=== PATIENT | female | born 1940 | race Caucasian/White ===

== ENCOUNTER 2018-07-10 10:49 | Emergency (ER) | payer MEDICARE, SELFPAY ==
[2018-07-10 10:59] VITALS: BP 142/81; PULSE 101; RESP 15; TEMP 36.9; O2SAT 95; BMI 30.8
--- NOTE | 2018-07-10 12:22 | ED.FEMALEGU ---
HPI - Female Genitourinary <JERRY Lawson - Last Filed: 07/10/18 22:31> General Chief complaint: Urogenital-Female Stated complaint: UTI for months, really painful Time Seen by Provider: 07/10/18 12:22 Source: patient Mode of arrival: ambulatory Limitations: no limitations History of Present Illness HPI Narrative: 69-year-old female with history of having back pain and a urinary tract infection over the past several weeks is here for continued symptoms with pain into the suprapubic region that radiates to the back that has worsened over the past several days. she states she has a history of having kidney stones and urinary tract infections. She has been seen by Urology and also Nephrology for the symptoms over the past few weeks. She was in the emergency room for this approximately 2-[address] that was negative. She was treated for urinary tract infection. She reports she still having symptoms that have worsened. She states she has had chills. No known fever. MD Complaint: UTI Related Data Home Medications Medication Instructions Recorded Confirmed memantine 10 mg PO BID 07/10/18 07/10/18 paroxetine HCl 30 mg PO DAILY 07/10/18 07/10/18 propranolol 60 mg PO DAILY 07/10/18 07/10/18 Previous Rx's Medication Instructions Recorded omeprazole 40 mg PO QAM 14 Days #0 cap 03/24/16 hydrocodone-acetaminophen [Wellington] 1 tab PO Q6H PRN #10 tab 07/10/18 sulfamethoxazole-trimethoprim 1 tab PO BID #14 tab 07/10/18 [Bactrim DS] tamsulosin [Flomax] 0.4 mg PO DAILY #14 cap 07/10/18 Allergies Allergy/AdvReac Type Severity Reaction Status Date / Time ibuprofen [From MOTRIN] Allergy Intermediate HIVES Verified 07/10/18 10:59 Penicillins [PENICILLINS] Allergy Intermediate HIVES Verified 07/10/18 10:59 Review of Systems <JERRY Lawson - Last Filed: 07/10/18 22:31> Constitutional Denies chills, Denies fever(s), Denies lethargy and Denies weakness Eyes Denies change in vision, Denies eye discharge, Denies irritation and Denies loss of vision ENT Ears, Nose, Mouth, and Throat: Denies change in voice, Denies neck pain and Denies sore throat Cardiovascular Denies chest pain, Denies irregular heart rhythm, Denies lightheadedness, Denies palpitations, Denies dyspnea, Denies dyspnea on exertion and Denies orthopnea Respiratory Denies cough, Denies dyspnea, Denies dyspnea on exertion and Denies wheezing Gastrointestinal Gastrointestinal: Denies abdominal pain, Denies change in bowel habits, Denies diarrhea, Denies nausea and Denies vomiting Genitourinary Denies hematuria, Reports dysuria, Reports flank pain, Denies urinary incontinence and Denies urinary urgency Musculoskeletal Denies neck pain Neurologic Denies confusion, Denies loss of vision and Denies weakness Psychiatric Denies anxiety, Denies confusion, Denies depression, Denies homicidal ideation and Denies suicidal ideation Endocrine Denies palpitations Allergic/Immunologic Denies wheezing Exam <JERRY Lawson - Last Filed: 07/10/18 22:31> Initial Vital Signs Initial Vital Signs: Vital Signs Temperature 98.4 F 07/10/18 10:59 Pulse Rate 101 H 07/10/18 10:59 Respiratory Rate 15 07/10/18 10:59 Blood Pressure 142/81 H 07/10/18 10:59 Pulse Oximetry 95 07/10/18 10:59 Const General: cooperative and well developed Nutritional Appearance: well nourished Orientation: alert, awake, oriented x3 and not confused HENKS Mouth: oral mucosae normal and moist mucous membranes Eyes Conjunctivae: conjunctivae normal Sclera: sclerae normal Pupils: PERRL EOM: EOM intact bilaterally Chest Chest: normal inspection of the chest Resp Effort & Inspection: normal respiratory effort, able to speak in complete sentences, no respiratory distress and no use of accessory muscles Auscultation: clear to auscultation bilaterally, no rales, no rhonchi and no wheezes Cardio Rate: regular rate Rhythm: regular rhythm Heart Sounds: no click, no gallops, no murmurs and no rubs Pulses: normal peripheral pulses GI Other: Tenderness over suprapubic area General: No CVA tenderness Neuro General: alert, oriented x3, gait normal and no focal motor deficits Speech: speech normal <Alin Chaudhry DO - Last Filed: 07/11/18 06:12> Initial Vital Signs Initial Vital Signs: Vital Signs Temperature 98.4 F 07/10/18 10:59 Pulse Rate 101 H 07/10/18 10:59 Respiratory Rate 15 07/10/18 10:59 Blood Pressure 142/81 H 07/10/18 10:59 Pulse Oximetry 95 07/10/18 10:59 Course <JERRY Lawson - Last Filed: 07/10/18 22:31> Orders Ordered: Discontinued Medications Sodium Chloride (Normal Saline 0.9%) 1,000 mls @ 150 mls/hr IV CONT EDA Last Infusion: 07/10/18 18:15 Dose: 0 mls/hr Infusion: 07/10/18 18:10 Dose: 999 mls/hr Infusion: 07/10/18 18:08 Dose: 999 mls/hr Admin: 07/10/18 13:45 Dose: 150 mls/hr Ceftriaxone Sodium/Dextrose (Rocephin) 1 gm in 50 mls @ 100 mls/hr IV NOW ONE Stop: 07/10/18 14:35 Last Infusion: 07/10/18 15:52 Dose: 0 mls/hr Admin: 07/10/18 14:19 Dose: 100 mls/hr Vital Signs - 8 hr 07/10/18 15:30 07/10/18 16:00 Pulse Rate 70 71 Respiratory Rate 18 22 Blood Pressure [Right Arm] 132/89 132/60 Pulse Oximetry 99 98 <Alin Chaudhry DO - Last Filed: 07/11/18 06:12> Orders Ordered: Discontinued Medications Sodium Chloride (Normal Saline 0.9%) 1,000 mls @ 150 mls/hr IV CONT EDA Last Infusion: 07/10/18 18:15 Dose: 0 mls/hr Infusion: 07/10/18 18:10 Dose: 999 mls/hr Infusion: 07/10/18 18:08 Dose: 999 mls/hr Admin: 07/10/18 13:45 Dose: 150 mls/hr Ceftriaxone Sodium/Dextrose (Rocephin) 1 gm in 50 mls @ 100 mls/hr IV NOW ONE Stop: 07/10/18 14:35 Last Infusion: 07/10/18 15:52 Dose: 0 mls/hr Admin: 07/10/18 14:19 Dose: 100 mls/hr Vital Signs - 8 hr 07/10/18 15:30 07/10/18 16:00 Pulse Rate 70 71 Respiratory Rate 18 22 Blood Pressure [Right Arm] 132/89 132/60 Pulse Oximetry 99 98 MDM - Female Genitourinary <JERRY Lawson - Last Filed: 07/10/18 22:31> Lab Data Result diagrams: 07/10/18 13:40 07/10/18 13:40 Lab Results 07/10/18 07/10/18 07/10/18 Range/Units 11:04 13:40 13:40 WBC 9.1 (4.5-11.0) X10^3/uL RBC 4.17 (4.0-5.2) X10^6/uL Hgb 14.5 (12.0-16.0) g/dL Hct 42.7 (36-46) % MCV 102.3 H (80-100) fL MCH 34.7 H (26-34) PG MCHC 33.9 (30-36) % RDW 13.6 (11.6-14.8) % Plt Count 260 (150-400) X10^3/uL Neut % (Auto) 80.2 H (50-75) % Lymph % (Auto) 10.7 L (25-40) % Meigs % (Auto) 8.1 (3-14) % Eos % (Auto) 0.7 L (2-4) % Baso % (Auto) 0.3 (0-2) % Neut # (Auto) 7300 H (5027-6581) /uL Lymph # (Auto) 1000 L (7512-8034) /uL Meigs # (Auto) 700 (0-900) /uL Eos # (Auto) 100 (0-450) /uL Baso # (Auto) 0 (0-100) /uL Sodium 138 (137-145) mmol/L Potassium 3.3 L (3.4-5.1) mmol/L Chloride 98 (98-107) mmol/L Carbon Dioxide 29 (22-32) mmol/L BUN 11 (7-17) mg/dL Creatinine 0.60 (0.52-1.04) mg/dL Estimated GFR > 60.0 (>60) mL/min BUN/Creatinine Ratio 18.3 (6-22) Glucose 98 (80-110) mg/dL Calcium 8.8 (8.4-10.2) mg/dL Total Bilirubin 0.8 (0.2-1.3) mg/dL AST 46 H (14-36) IU/L ALT 41 (9-52) IU/L Alkaline Phosphatase 108 (38-126) U/L Total Protein 7.4 (6.3-8.2) g/dL Albumin 4.1 (3.5-5.0) g/dL Globulin 3.3 (1.7-4.1) g/dL Albumin/Globulin Ratio 1.2 (1.0-2.8) Lipase 102 (23-300) U/L Urine RBC 10-30/hpf H (0-5/HPF) Urine WBC >100/hpf H (0-5/HPF) Urine Bacteria Many (>30) H (None) Ur Culture Indicated? Specimen cultured Urine Dip Bedside Urine Glucose Negative Bedside Urine Bilirubin - Negative Bedside Urine Ketone ++ 40 Urine Specific [place] 1.015 Bedside Urine Occult Blood ++ Bedside Urine pH 6.0 Bedside Urine Protein + 30 Bedside Urine Urobilinogen - Negative Bedside Urine Nitrite + Positive Bedside Urine Leukocytes +++ 500 Esterase MDM Narrative Medical decision making narrative: CBC was obtained was unremarkable. Chem panel was obtained and shows potassium at 3.3 otherwise is unremarkable. urinalysis indicates RBCs WBCs indicating urinary tract infection. CT of the abdomen was obtained and shows 4 mm right distal ureteral stone with [id number] hydronephrosis and hydroureter. She has bilateral nonobstructing renal stones. No left sided hydronephrosis. Incidental findings of colonic diverticulosis with no diverticulitis. She also has findings consistent with fatty liver. CT from from the 28 of June was negative for any obstructing kidney stones at that timeframe.. Urine culture from the was obtained and shows E coli with resistance to cephalothin separate seem and Macrobid. Discussed case with Dr. Browne urology who will follow up with patient here in the next week. He recommends placing her on Septra. For any worsening symptoms return emergency room. [id number] Tylenol as needed for any discomfort. Small amount of Wellington was provided for breakthrough pain. <Alin Chaudhry, - Last Filed: 07/11/18 06:12> Lab Data Lab Results 07/10/18 07/10/18 07/10/18 Range/Units 11:04 13:40 13:40 WBC 9.1 (4.5-11.0) X10^3/uL RBC 4.17 (4.0-5.2) X10^6/uL Hgb 14.5 (12.0-16.0) g/dL Hct 42.7 (36-46) % MCV 102.3 H (80-100) fL MCH 34.7 H (26-34) PG MCHC 33.9 (30-36) % RDW 13.6 (11.6-14.8) % Plt Count 260 (150-400) X10^3/uL Neut % (Auto) 80.2 H (50-75) % Lymph % (Auto) 10.7 L (25-40) % Meigs % (Auto) 8.1 (3-14) % Eos % (Auto) 0.7 L (2-4) % Baso % (Auto) 0.3 (0-2) % Neut # (Auto) 7300 H (5171-4900) /uL Lymph # (Auto) 1000 L (6380-5387) /uL Meigs # (Auto) 700 (0-900) /uL Eos # (Auto) 100 (0-450) /uL Baso # (Auto) 0 (0-100) /uL Sodium 138 (137-145) mmol/L Potassium 3.3 L (3.4-5.1) mmol/L Chloride 98 (98-107) mmol/L Carbon Dioxide 29 (22-32) mmol/L BUN 11 (7-17) mg/dL Creatinine 0.60 (0.52-1.04) mg/dL Estimated GFR > 60.0 (>60) mL/min BUN/Creatinine Ratio 18.3 (6-22) Glucose 98 (80-110) mg/dL Calcium 8.8 (8.4-10.2) mg/dL Total Bilirubin 0.8 (0.2-1.3) mg/dL AST 46 H (14-36) IU/L ALT 41 (9-52) IU/L Alkaline Phosphatase 108 (38-126) U/L Total Protein 7.4 (6.3-8.2) g/dL Albumin 4.1 (3.5-5.0) g/dL Globulin 3.3 (1.7-4.1) g/dL Albumin/Globulin Ratio 1.2 (1.0-2.8) Lipase 102 (23-300) U/L Urine RBC 10-30/hpf H (0-5/HPF) Urine WBC >100/hpf H (0-5/HPF) Urine Bacteria Many (>30) H (None) Ur Culture Indicated? Specimen cultured Urine Dip Bedside Urine Glucose Negative Bedside Urine Bilirubin - Negative Bedside Urine Ketone ++ 40 Urine Specific [place] 1.015 Bedside Urine Occult Blood ++ Bedside Urine pH 6.0 Bedside Urine Protein + 30 Bedside Urine Urobilinogen - Negative Bedside Urine Nitrite + Positive Bedside Urine Leukocytes +++ 500 Esterase Discharge Plan Departure Patient Disposition: Home Clinical Impression: Right nephrolithiasis Urinary tract infection Qualifiers: Urinary tract infection type: acute cystitis Hematuria presence: without hematuria Qualified Code(s): N30.00 - Acute cystitis without hematuria Discharge Date/Time: 07/10/18 16:00 Interventions: ED Discharge Assessment Last Done: 07/10/18 17:05 Instructions: DI for Kidney Stones Activity Restrictions/Additional Instructions: Urinalysis indicates urinary tract infection. CT of the abdomen shows that you are passing a 4 mm stone on the right side which is causing the discomfort to your flank area. You are prescribed an antibiotic called Septra use as directed. Your also prescribed Flomax to help pass the stone. Plenty of fluids. Use [id number] Tylenol as needed for any discomfort. Small amount Wellington is prescribed for breakthrough pain not covered by the Tylenol. Follow up with Urology in the next week call the number to schedule follow-up appointment. For any worsening symptoms return to the emergency room. Prescriptions: New hydrocodone-acetaminophen [Wellington] 5-325 mg tablet 1 tab PO Q6H PRN (Reason: pain) Qty: 10 RF: 0 sulfamethoxazole-trimethoprim [Bactrim DS] 800-160 mg tablet 1 tab PO BID Qty: 14 RF: 0 tamsulosin [Flomax] 0.4 mg capsule 0.4 mg PO DAILY Qty: 14 RF: 0 No Action omeprazole 40 MG capsule,delayed release(DR/EC) 40 mg PO QAM 14 Days Qty: 0 RF: 0 propranolol 60 mg capsule,extended release 24 hr 60 mg PO DAILY RF: 0 paroxetine HCl 30 mg tablet 30 mg PO DAILY RF: 0 memantine 10 mg tablet 10 mg PO BID RF: 0 Referrals: Peewee Carlton DO [Primary Care Provider] - <Alin Chaudhry DO - Last Filed: 07/11/18 06:12> Cosign ED Attending Cosignature Attestation: I was immediately available in the department for consultation. Documentation has been reviewed. I agree with assessment and plan.
--- NOTE | 2018-07-10 12:41 | DI.CT.S_ITS ---
PROCEDURE: CT ABDOMEN PELVIS W CON INDICATIONS: Bilateral lower abdominal pain radiating to the back TECHNIQUE: After the administration of intravenous contrast, 5 mm thick sections acquired from the diaphragm to the symphysis. 5 mm coronal and sagittal reformats were acquired. For radiation dose reduction, the following was used: automated exposure control, adjustment of mA and/or kV according to patient size. COMPARISON: None. FINDINGS: Image quality: Excellent. ABDOMEN: Lung bases: Lung bases are clear. Heart size is normal. Solid organs: Liver is normal in size and enhancement. Hepatic steatosis is seen. Gallbladder is within normal limits. Biliary system is non dilated. Pancreas enhances normally. Spleen is normal in size and enhancement. No adrenal nodules. Bilateral kidneys are normal in size. Prominence of right renal collecting system and right ureter is seen with mild right perinephric fat stranding. A 4 mm calcification in distal right ureter is noted, consistent with right distal ureteral stone and right hydronephrosis. Nonobstructing bilateral renal calculi are seen. No left-sided hydronephrosis. Multiple left renal cysts are noted and measures up to 2.3 cm in size. Peritoneum and bowel: Bowel loops demonstrate normal wall thickness and caliber. No free fluid or air. No evidence of acute appendicitis. Colonic diverticulosis is seen, no CT evidence of acute diverticulitis. Nodes and vessels: No retroperitoneal or mesenteric adenopathy by size criteria. Aorta and inferior vena cava are normal in size. Miscellaneous: No ventral hernias. PELVIS: Genitourinary: Bladder wall thickness is normal. No calcified bladder stone is seen. Uterus and bilateral adnexa show no gross abnormality. Miscellaneous: No inguinal hernias or adenopathy. Bones: No suspicious bony lesions. No vertebral body compression fractures. IMPRESSION: 1. 4 mm right distal ureteral stone with mild to moderate right-sided hydronephrosis and hydroureter. Bilateral nonobstructing renal stones. No left-sided hydronephrosis is seen. Normal-appearing urinary bladder. 2. Colonic diverticulosis with no CT evidence of acute diverticulitis. No evidence of acute appendicitis or bowel structure. No free fluid or free air. 3. Hepatic steatosis. Dictated by: Karthik Hurt M.D. on 07/10/2018 at 15:04 Approved by: Karthik Hurt M.D. on 07/10/2018 at 15:08
[2018-07-10 12:53] LABS: Bacteria Urine Many (>30); Culture Indicated Urine Specimen Cultured; RBC Urine 10-30/HPF (0-5/HPF); WBC Urine >100/HPF (0-5/HPF)
[2018-07-10] MEDS: SODIUM CHLORIDE 0.9% 1,000 ML 150 ML IV (13:45)
[2018-07-10 13:59] LABS: Add Manual Diff / Slide Review NO; Basophils Absolute Auto 0 /uL (0-100); Basophils Percent Auto 0.3 % (0-2); Eosinophils Absolute Auto 100 /uL (0-450); Eosinophils Percent Auto 0.7 % (2-4); Hematocrit 42.7 % (36-46); Hemoglobin 14.5 g/dL (12.0-16.0); Lymphocytes Absolute Auto 1000 /uL (1100-4500); Lymphocytes Percent Auto 10.7 % (25-40); Mean Corpuscular HGB Conc 33.9 % (30-36); Mean Corpuscular Hemoglobin 34.7 PG (26-34); Mean Corpuscular Volume 102.3 fL (80-100); Monocytes Absolute Auto 700 /uL (0-900); Monocytes Percent Auto 8.1 % (3-14); Neutrophils Absolute Auto 7300 /uL (1500-7000); Neutrophils Percent Auto 80.2 % (50-75); Platelet Count 260 X10^3/uL (150-400); Red Blood Cell Count 4.17 X10^6/uL (4.0-5.2); Red Cell Distribution Width 13.6 % (11.6-14.8); White Blood Cell Count 9.1 X10^3/uL (4.5-11.0)
[2018-07-10] MEDS: CEFTRIAXONE 1 GM/50 ML FROZ.PIGGY IV (14:19)
[2018-07-10 14:21] VITALS: BP 139/62; PULSE 71; O2SAT 93
[2018-07-10 14:22] LABS: Alanine Aminotransferase 41 IU/L (9-52); Albumin 4.1 g/dL (3.5-5.0); Albumin Globulin Ratio 1.2 (1.0-2.8); Alkaline Phosphatase 108 U/L (38-126); Aspartate Aminotransferase 46 IU/L (14-36); BUN Creatinine Ratio 18.3 (6-22); Bilirubin Total 0.8 mg/dL (0.2-1.3); Blood Urea Nitrogen 11 mg/dL (7-17); Calcium 8.8 mg/dL (8.4-10.2); Carbon Dioxide 29 mmol/L (22-32); Chloride 98 mmol/L (98-107); Estimated Glomerular Filt Rate > 60.0 mL/min (>60); Globulin 3.3 g/dL (1.7-4.1); Glucose 98 mg/dL (80-110); HEMOLYSIS < 15 (0-50); Lipase 102 U/L (23-300); Potassium 3.3 mmol/L (3.4-5.1); Sodium 138 mmol/L (137-145); Total Protein 7.4 g/dL (6.3-8.2)
[2018-07-10 14:30] VITALS: BP 129/62; PULSE 71; RESP 20; O2SAT 98
--- NOTE | 2018-07-10 15:11 | ED_ITS ---
HPI - Female Genitourinary <JERRY Lawson - Last Filed: 07/10/18 22:31> General Chief complaint: Urogenital-Female Stated complaint: UTI for months, really painful Time Seen by Provider: 07/10/18 12:22 Source: patient Mode of arrival: ambulatory Limitations: no limitations History of Present Illness HPI Narrative: 69-year-old female with history of having back pain and a urinary tract infection over the past several weeks is here for continued symptoms with pain into the suprapubic region that radiates to the back that has worsened over the past several days. she states she has a history of having kidney stones and urinary tract infections. She has been seen by Urology and also Nephrology for the symptoms over the past few weeks. She was in the emergency room for this approximately 2-[address] that was negative. She was treated for urinary tract infection. She reports she still having symptoms that have worsened. She states she has had chills. No known fever. MD Complaint: UTI Related Data Home Medications Medication Instructions Recorded Confirmed memantine 10 mg PO BID 07/10/18 07/10/18 paroxetine HCl 30 mg PO DAILY 07/10/18 07/10/18 propranolol 60 mg PO DAILY 07/10/18 07/10/18 Previous Rx's Medication Instructions Recorded omeprazole 40 mg PO QAM 14 Days #0 cap 03/24/16 hydrocodone-acetaminophen [[place]] 1 tab PO Q6H PRN #10 tab 07/10/18 sulfamethoxazole-trimethoprim 1 tab PO BID #14 tab 07/10/18 [Bactrim DS] tamsulosin [Flomax] 0.4 mg PO DAILY #14 cap 07/10/18 Allergies Allergy/AdvReac Type Severity Reaction Status Date / Time ibuprofen [From MOTRIN] Allergy Intermediate HIVES Verified 07/10/18 10:59 Penicillins [PENICILLINS] Allergy Intermediate HIVES Verified 07/10/18 10:59 Review of Systems <JERRY Lawson - Last Filed: 07/10/18 22:31> Constitutional Denies chills, Denies fever(s), Denies lethargy and Denies weakness Eyes Denies change in vision, Denies eye discharge, Denies irritation and Denies loss of vision ENT Ears, Nose, Mouth, and Throat: Denies change in voice, Denies neck pain and Denies sore throat Cardiovascular Denies chest pain, Denies irregular heart rhythm, Denies lightheadedness, Denies palpitations, Denies dyspnea, Denies dyspnea on exertion and Denies orthopnea Respiratory Denies cough, Denies dyspnea, Denies dyspnea on exertion and Denies wheezing Gastrointestinal Gastrointestinal: Denies abdominal pain, Denies change in bowel habits, Denies diarrhea, Denies nausea and Denies vomiting Genitourinary Denies hematuria, Reports dysuria, Reports flank pain, Denies urinary incontinence and Denies urinary urgency Musculoskeletal Denies neck pain Neurologic Denies confusion, Denies loss of vision and Denies weakness Psychiatric Denies anxiety, Denies confusion, Denies depression, Denies homicidal ideation and Denies suicidal ideation Endocrine Denies palpitations Allergic/Immunologic Denies wheezing Exam <JERRY Lawson - Last Filed: 07/10/18 22:31> Initial Vital Signs Initial Vital Signs: Vital Signs Temperature 98.4 F 07/10/18 10:59 Pulse Rate 101 H 07/10/18 10:59 Respiratory Rate 15 07/10/18 10:59 Blood Pressure 142/81 H 07/10/18 10:59 Pulse Oximetry 95 07/10/18 10:59 Const General: cooperative and well developed Nutritional Appearance: well nourished Orientation: alert, awake, oriented x3 and not confused HENPR Mouth: oral mucosae normal and moist mucous membranes Eyes Conjunctivae: conjunctivae normal Sclera: sclerae normal Pupils: PERRL EOM: EOM intact bilaterally Chest Chest: normal inspection of the chest Resp Effort & Inspection: normal respiratory effort, able to speak in complete sentences, no respiratory distress and no use of accessory muscles Auscultation: clear to auscultation bilaterally, no rales, no rhonchi and no wheezes Cardio Rate: regular rate Rhythm: regular rhythm Heart Sounds: no click, no gallops, no murmurs and no rubs Pulses: normal peripheral pulses GI Other: Tenderness over suprapubic area General: No CVA tenderness Neuro General: alert, oriented x3, gait normal and no focal motor deficits Speech: speech normal <Alin Chaudhry DO - Last Filed: 07/11/18 06:12> Initial Vital Signs Initial Vital Signs: Vital Signs Temperature 98.4 F 07/10/18 10:59 Pulse Rate 101 H 07/10/18 10:59 Respiratory Rate 15 07/10/18 10:59 Blood Pressure 142/81 H 07/10/18 10:59 Pulse Oximetry 95 07/10/18 10:59 Course <JERRY Lawson - Last Filed: 07/10/18 22:31> Orders Ordered: Discontinued Medications Sodium Chloride (Normal Saline 0.9%) 1,000 mls @ 150 mls/hr IV CONT EDA Last Infusion: 07/10/18 18:15 Dose: 0 mls/hr Infusion: 07/10/18 18:10 Dose: 999 mls/hr Infusion: 07/10/18 18:08 Dose: 999 mls/hr Admin: 07/10/18 13:45 Dose: 150 mls/hr Ceftriaxone Sodium/Dextrose (Rocephin) 1 gm in 50 mls @ 100 mls/hr IV NOW ONE Stop: 07/10/18 14:35 Last Infusion: 07/10/18 15:52 Dose: 0 mls/hr Admin: 07/10/18 14:19 Dose: 100 mls/hr Vital Signs - 8 hr 07/10/18 15:30 07/10/18 16:00 Pulse Rate 70 71 Respiratory Rate 18 22 Blood Pressure [Right Arm] 132/89 132/60 Pulse Oximetry 99 98 <Alin Chaudhry DO - Last Filed: 07/11/18 06:12> Orders Ordered: Discontinued Medications Sodium Chloride (Normal Saline 0.9%) 1,000 mls @ 150 mls/hr IV CONT EDA Last Infusion: 07/10/18 18:15 Dose: 0 mls/hr Infusion: 07/10/18 18:10 Dose: 999 mls/hr Infusion: 07/10/18 18:08 Dose: 999 mls/hr Admin: 07/10/18 13:45 Dose: 150 mls/hr Ceftriaxone Sodium/Dextrose (Rocephin) 1 gm in 50 mls @ 100 mls/hr IV NOW ONE Stop: 07/10/18 14:35 Last Infusion: 07/10/18 15:52 Dose: 0 mls/hr Admin: 07/10/18 14:19 Dose: 100 mls/hr Vital Signs - 8 hr 07/10/18 15:30 07/10/18 16:00 Pulse Rate 70 71 Respiratory Rate 18 22 Blood Pressure [Right Arm] 132/89 132/60 Pulse Oximetry 99 98 MDM - Female Genitourinary <JERRY Lawson - Last Filed: 07/10/18 22:31> Lab Data Result diagrams: 07/10/18 13:40 07/10/18 13:40 Lab Results 07/10/18 07/10/18 07/10/18 Range/Units 11:04 13:40 13:40 WBC 9.1 (4.5-11.0) X10^3/uL RBC 4.17 (4.0-5.2) X10^6/uL Hgb 14.5 (12.0-16.0) g/dL Hct 42.7 (36-46) % MCV 102.3 H (80-100) fL MCH 34.7 H (26-34) PG MCHC 33.9 (30-36) % RDW 13.6 (11.6-14.8) % Plt Count 260 (150-400) X10^3/uL Neut % (Auto) 80.2 H (50-75) % Lymph % (Auto) 10.7 L (25-40) % [place] % (Auto) 8.1 (3-14) % Eos % (Auto) 0.7 L (2-4) % Baso % (Auto) 0.3 (0-2) % Neut # (Auto) 7300 H (1941-3854) /uL Lymph # (Auto) 1000 L (2186-7400) /uL [place] # (Auto) 700 (0-900) /uL Eos # (Auto) 100 (0-450) /uL Baso # (Auto) 0 (0-100) /uL Sodium 138 (137-145) mmol/L Potassium 3.3 L (3.4-5.1) mmol/L Chloride 98 (98-107) mmol/L Carbon Dioxide 29 (22-32) mmol/L BUN 11 (7-17) mg/dL Creatinine 0.60 (0.52-1.04) mg/dL Estimated GFR > 60.0 (>60) mL/min BUN/Creatinine Ratio 18.3 (6-22) Glucose 98 (80-110) mg/dL Calcium 8.8 (8.4-10.2) mg/dL Total Bilirubin 0.8 (0.2-1.3) mg/dL AST 46 H (14-36) IU/L ALT 41 (9-52) IU/L Alkaline Phosphatase 108 (38-126) U/L Total Protein 7.4 (6.3-8.2) g/dL Albumin 4.1 (3.5-5.0) g/dL Globulin 3.3 (1.7-4.1) g/dL Albumin/Globulin Ratio 1.2 (1.0-2.8) Lipase 102 (23-300) U/L Urine RBC 10-30/hpf H (0-5/HPF) Urine WBC >100/hpf H (0-5/HPF) Urine Bacteria Many (>30) H (None) Ur Culture Indicated? Specimen cultured Urine Dip Bedside Urine Glucose Negative Bedside Urine Bilirubin - Negative Bedside Urine Ketone ++ 40 Urine Specific [place] 1.015 Bedside Urine Occult Blood ++ Bedside Urine pH 6.0 Bedside Urine Protein + 30 Bedside Urine Urobilinogen - Negative Bedside Urine Nitrite + Positive Bedside Urine Leukocytes +++ 500 Esterase MDM Narrative Medical decision making narrative: CBC was obtained was unremarkable. Chem panel was obtained and shows potassium at 3.3 otherwise is unremarkable. urinalysis indicates RBCs WBCs indicating urinary tract infection. CT of the abdomen was obtained and shows 4 mm right distal ureteral stone with [id number] hydronephrosis and hydroureter. She has bilateral nonobstructing renal stones. No left sided hydronephrosis. Incidental findings of colonic diverticulosis with no diverticulitis. She also has findings consistent with fatty liver. CT from from the 28 of June was negative for any obstructing kidney stones at that timeframe.. Urine culture from the was obtained and shows E coli with resistance to cephalothin separate seem and Macrobid. Discussed case with Dr. Browne urology who will follow up with patient here in the next week. He recommends placing her on Septra. For any worsening symptoms return emergency room. [id number] Tylenol as needed for any discomfort. Small amount of [place] was provided for breakthrough pain. <Alin Chaudhry, - Last Filed: 07/11/18 06:12> Lab Data Lab Results 07/10/18 07/10/18 07/10/18 Range/Units 11:04 13:40 13:40 WBC 9.1 (4.5-11.0) X10^3/uL RBC 4.17 (4.0-5.2) X10^6/uL Hgb 14.5 (12.0-16.0) g/dL Hct 42.7 (36-46) % MCV 102.3 H (80-100) fL MCH 34.7 H (26-34) PG MCHC 33.9 (30-36) % RDW 13.6 (11.6-14.8) % Plt Count 260 (150-400) X10^3/uL Neut % (Auto) 80.2 H (50-75) % Lymph % (Auto) 10.7 L (25-40) % [place] % (Auto) 8.1 (3-14) % Eos % (Auto) 0.7 L (2-4) % Baso % (Auto) 0.3 (0-2) % Neut # (Auto) 7300 H (2761-2678) /uL Lymph # (Auto) 1000 L (9865-7647) /uL [place] # (Auto) 700 (0-900) /uL Eos # (Auto) 100 (0-450) /uL Baso # (Auto) 0 (0-100) /uL Sodium 138 (137-145) mmol/L Potassium 3.3 L (3.4-5.1) mmol/L Chloride 98 (98-107) mmol/L Carbon Dioxide 29 (22-32) mmol/L BUN 11 (7-17) mg/dL Creatinine 0.60 (0.52-1.04) mg/dL Estimated GFR > 60.0 (>60) mL/min BUN/Creatinine Ratio 18.3 (6-22) Glucose 98 (80-110) mg/dL Calcium 8.8 (8.4-10.2) mg/dL Total Bilirubin 0.8 (0.2-1.3) mg/dL AST 46 H (14-36) IU/L ALT 41 (9-52) IU/L Alkaline Phosphatase 108 (38-126) U/L Total Protein 7.4 (6.3-8.2) g/dL Albumin 4.1 (3.5-5.0) g/dL Globulin 3.3 (1.7-4.1) g/dL Albumin/Globulin Ratio 1.2 (1.0-2.8) Lipase 102 (23-300) U/L Urine RBC 10-30/hpf H (0-5/HPF) Urine WBC >100/hpf H (0-5/HPF) Urine Bacteria Many (>30) H (None) Ur Culture Indicated? Specimen cultured Urine Dip Bedside Urine Glucose Negative Bedside Urine Bilirubin - Negative Bedside Urine Ketone ++ 40 Urine Specific [place] 1.015 Bedside Urine Occult Blood ++ Bedside Urine pH 6.0 Bedside Urine Protein + 30 Bedside Urine Urobilinogen - Negative Bedside Urine Nitrite + Positive Bedside Urine Leukocytes +++ 500 Esterase Discharge Plan Departure Patient Disposition: Home Clinical Impression: Right nephrolithiasis Urinary tract infection Qualifiers: Urinary tract infection type: acute cystitis Hematuria presence: without hematuria Qualified Code(s): N30.00 - Acute cystitis without hematuria Discharge Date/Time: 07/10/18 16:00 Interventions: ED Discharge Assessment Last Done: 07/10/18 17:05 Instructions: DI for Kidney Stones Activity Restrictions/Additional Instructions: Urinalysis indicates urinary tract infection. CT of the abdomen shows that you are passing a 4 mm stone on the right side which is causing the discomfort to your flank area. You are prescribed an antibiotic called Septra use as directed. Your also prescribed Flomax to help pass the stone. Plenty of fluids. Use [id number] Tylenol as needed for any discomfort. Small amount [place] is prescribed for breakthrough pain not covered by the Tylenol. Follow up with Urology in the next week call the number to schedule follow-up appointment. For any worsening symptoms return to the emergency room. Prescriptions: New hydrocodone-acetaminophen [[place]] 5-325 mg tablet 1 tab PO Q6H PRN (Reason: pain) Qty: 10 RF: 0 sulfamethoxazole-trimethoprim [Bactrim DS] 800-160 mg tablet 1 tab PO BID Qty: 14 RF: 0 tamsulosin [Flomax] 0.4 mg capsule 0.4 mg PO DAILY Qty: 14 RF: 0 No Action omeprazole 40 MG capsule,delayed release(DR/EC) 40 mg PO QAM 14 Days Qty: 0 RF: 0 propranolol 60 mg capsule,extended release 24 hr 60 mg PO DAILY RF: 0 paroxetine HCl 30 mg tablet 30 mg PO DAILY RF: 0 memantine 10 mg tablet 10 mg PO BID RF: 0 Referrals: Peewee Carlton DO [Primary Care Provider] - <Alin Chaudhry DO - Last Filed: 07/11/18 06:12> Cosign ED Attending Cosignature Attestation: I was immediately available in the department for consultation. Documentation has been reviewed. I agree with assessment and plan.
[2018-07-10 15:30] VITALS: BP 132/89; PULSE 70; RESP 18; O2SAT 99
[2018-07-10 16:00] VITALS: BP 132/60; PULSE 71; RESP 22; O2SAT 98
--- NOTE | 2018-07-10 18:09 | PC.NURSE ---
Mitesh changed NS 1000 iv infusion from 150ml to 1000ml/hr
== END 2018-07-10 16:00 | disposition home or self-care (01) ==
PROVIDERS: Emergency Provider Nurse Practitioner Family; Family Provider Family Medicine; PCP Family Medicine
DX: N30.00 Acute cystitis without hematuria (principal); N20.0 Calculus of kidney
CPT/HCPCS: 36591; 74177; 80053; 81003; 81015; 83690; 85025; 87077; 87086; 87186; 96361; 96365; 96366; 99284; Q9967

== ENCOUNTER → 2018-08-19 10:46 | Outpatient (CLI) | payer MEDICARE, SELFPAY ==
--- NOTE | 2018-08-19 | DI.MRI.S_ITS ---
PROCEDURE: MR HEAD/BRAIN WO/W CON INDICATIONS: BEHAVIORAL DISTURBANCE WITH DEMENTIA TECHNIQUE: Noncontrast axial T1 spin echo, axial T2 fast spin echo, sagittal and axial FLAIR, coronal T2 fast spin echo, axial gradient echo, axial diffusion and ADC through the brain. After the administration of contrast, axial and coronal T1 spin echo with fat saturation through the brain. COMPARISON: None. FINDINGS: Image quality: Excellent. CSF spaces: Basal cisterns are patent. No extra-axial fluid collections. Ventricles are normal in size and shape. Brain: No midline shift. No intracranial bleeds or masses. No abnormal intracranial enhancement. There is cerebral volume loss for age. There is periventricular white matter chronic small vessel ischemic change. The brainstem appears normal. Diffusion-weighted images demonstrate no acute ischemic insults. No chronic ischemic insults. Normal intravascular flow voids are present. Skull and face: Calvarial marrow is normal in signal. Orbits appear normal. Note is made of bilateral lens replacements. There is an area of thickening seen involving the outer table of the calvarium, which is hypointense on all imaging phases and does not enhance, as on series 6 image 137 and on series 9 image 22. Sinuses: Sinuses and mastoids appear clear. IMPRESSION: No significant intracranial abnormality can be seen for age. No masses or abnormal enhancement can be seen. No findings of acute or subacute infarction can be seen. Note is made of age-appropriate brain parenchymal volume loss and chronic small vessel ischemic changes. 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 Dictated by: Gregory Chi M.D. on 08/19/2018 at 14:40 Approved by: Gregory Chi M.D. on 08/19/2018 at 14:42
--- NOTE | 2018-08-19 11:10 | DI.CT.S_ITS ---
PROCEDURE: CT KIDNEY URETER BLADDER (KUB) INDICATIONS: Calculus of kidney TECHNIQUE: Noncontrast 5 mm thick sections acquired from the diaphragms to the symphysis. 5 mm thick coronal and sagittal reformats were then performed. For radiation dose reduction, the following was used: automated exposure control, adjustment of mA and/or kV according to patient size. COMPARISON: [facility], CT, CT ABDOMEN PELVIS W CON, 07/10/2018, 14:47. [facility], CR, XR ABDOMEN 1 VIEW, 08/07/2018, 13:45. FINDINGS: Image quality: Excellent. Lung bases: Lung bases are clear. Heart size is normal. Urinary system: Both kidneys are normal in size. No new kidney stones are found but the study is somewhat compromised by the excretion of contrast utilized for brain MR imaging performed earlier same day. No hydronephrosis or perinephric fat stranding. Both ureters appear non-dilated throughout their expected courses. Specifically, the distal right ureteral calculus has resolved and the hydronephrosis and hydroureter on the right also has completely resolved. Bladder wall thickness is normal; no calcified bladder stones. Other solid organs: Liver is normal in size. Gallbladder appears normal. Pancreas is normal in contours. Spleen is normal in size. No adrenal nodules. Peritoneum and bowel: Unenhanced bowel loops demonstrate normal wall thickness and caliber. No free fluid or air. Nodes and vessels: No retroperitoneal or mesenteric adenopathy by size criteria. Aorta and inferior vena cava are normal in caliber. Abdominal wall: No ventral hernias. Pelvis: No free pelvic fluid. No inguinal hernias or adenopathy. Bones: No suspicious bony lesions. No vertebral body compression fractures. IMPRESSION: Quality of visualization of the bilateral renal medullary and collecting system calculi is somewhat limited by the presence of excreted contrast from brain MRI performed earlier same day. However, the study is diagnostic for absence of hydronephrosis or hydroureter bilaterally and the far distal right ureteral stone producing significant right hydronephrosis and hydroureter 07/10/18 has entirely resolved. Dictated by: Reese Hollis M.D. on 08/19/2018 at 12:53 Approved by: Reese Hollis M.D. on 08/19/2018 at 12:58
== END ==
PROVIDERS: Family Provider Family Medicine; PCP Family Medicine; Referring Provider Psychiatry & Neurology Neurology; Visit Provider Urology
DX: F03.91 Unspecified dementia, unspecified severity, with behavioral disturbance (principal); N20.0 Calculus of kidney
CPT/HCPCS: 70553; 74176; A9579

== ENCOUNTER → 2019-12-10 10:42 | Outpatient (CLI) | payer MEDICARE, SELFPAY ==
--- NOTE | 2019-12-10 12:24 | DI.CT.S_ITS ---
PROCEDURE: CT KIDNEY URETER BLADDER (KUB) INDICATIONS: KIDNEY STONE TECHNIQUE: Noncontrast 5 mm thick sections acquired from the diaphragms to the symphysis. 5 mm thick coronal and sagittal reformats were then performed. For radiation dose reduction, the following was used: automated exposure control, adjustment of mA and/or kV according to patient size. COMPARISON: [facility], CT, CT KIDNEY URETER BLADDER (KUB), 08/19/2018, 11:47. FINDINGS: Image quality: Excellent. Lung bases: Lung bases are clear. Heart size is normal. Bilateral nephrolithiasis measuring up to 8 mm on the left and up to 7 mm on the right. There is moderate right hydroureteronephrosis related to a proximal 6 mm right ureteral calculus seen on image 38/2. No evidence of left-sided urinary obstruction. No kidney stones. No hydronephrosis or perinephric fat stranding. Both ureters appear non-dilated throughout their expected courses. No bladder calculi identified. Other solid organs: Liver is normal in size. Gallbladder unremarkable . Pancreas is normal in contours. Spleen is normal in size. No adrenal nodules. Postsurgical changes seen at the GE junction. No evidence of bowel obstruction. There is mild to moderate stool. No free fluid or air. Colonic diverticulosis is seen without evidence of acute complication. Normal appendix. Nodes and vessels: No retroperitoneal or mesenteric adenopathy by size criteria. Scattered vascular calcifications seen in the aorta. Abdominal wall: No ventral hernias. Pelvis: No free pelvic fluid. No inguinal hernias or adenopathy. Bones: No vertebral body compression fracture. Spondylytic changes and facet arthropathy. IMPRESSION: Moderate right hydroureteronephrosis related to a 6 mm calculus in the proximal right ureter, just below the UPJ. This is new since 08/19/18. Bilateral nephrolithiasis as before. Dictated by: Ozzy Solorio M.D. on 12/10/2019 at 13:03 Approved by: Ozzy Solorio M.D. on 12/10/2019 at 13:08
== END ==
PROVIDERS: Family Provider Family Medicine; PCP Family Medicine; Referring Provider Urology; Visit Provider Urology
DX: N13.2 Hydronephrosis with renal and ureteral calculous obstruction (principal); K57.90 Diverticulosis of intestine, part unspecified, without perforation or abscess without bleeding
CPT/HCPCS: 74176

== ENCOUNTER → 2020-06-03 12:49 | Outpatient (CLI) | payer MEDICARE, SELFPAY | PROVIDERS: Family Provider Family Medicine; PCP Student in an Organized Health Care Education/Training Program; Referring Provider Student in an Organized Health Care Education/Training Program; Visit Provider Student in an Organized Health Care Education/Training Program | DX: Z13.820 Encounter for screening for osteoporosis (principal); M85.852 Other specified disorders of bone density and structure, left thigh; Z78.0 Asymptomatic menopausal state; Z91.89 Other specified personal risk factors, not elsewhere classified; Z87.891 Personal history of nicotine dependence | CPT/HCPCS: 77080 ==

== ENCOUNTER → 2020-09-16 09:39 | Outpatient (CLI) | payer MEDICARE, MEDICAID, SELFPAY ==
[2020-09-16 11:48] LABS: Appearance Urine UA CLEAR; Bilirubin Urine UA NEGATIVE (NEGATIVE); Color Urine UA YELLOW; Glucose Urine UA NEGATIVE (Negative); Ketones Urine UA NEGATIVE (NEGATIVE); Leukocyte Esterase Urine UA TRACE (NEGATIVE); Nitrite Urine UA NEGATIVE (Negative); Occult Blood Urine UA TRACE-LYSED (Negative); Protein Urine UA TRACE (Negative); Specific Gravity Urine UA 1.025 (1.000-1.035); Urobilinogen Urine UA 0.2 E.U./dL (0.2)
[2020-09-16 11:52] LABS: pH Urine UA 5.5 (4.5-8.0)
[2020-09-16 12:05] LABS: Bacteria Urine Moderate (10-30); Culture Indicated Urine Specimen Cultured; RBC Urine 1-5/HPF (0-5/HPF); Squamous Epithelial Cell Urine 0-1 /HPF (0-5/HPF); WBC Urine 5-10/HPF (0-5/HPF)
== END ==
PROVIDERS: Family Provider Family Medicine; PCP Student in an Organized Health Care Education/Training Program; Referring Provider Student in an Organized Health Care Education/Training Program; Visit Provider Student in an Organized Health Care Education/Training Program
DX: R30.0 Dysuria (principal)
CPT/HCPCS: 81001; 87086

== ENCOUNTER → 2020-11-04 13:40 | Outpatient (CLI) | payer MEDICARE, SELFPAY | PROVIDERS: Family Provider Family Medicine; PCP Student in an Organized Health Care Education/Training Program; Referring Provider Urology; Visit Provider Urology | DX: R30.0 Dysuria (principal); N20.0 Calculus of kidney; N30.21 Other chronic cystitis with hematuria; R82.81 Pyuria | CPT/HCPCS: 51798; 81002; 87086; 99215 ==

== ENCOUNTER → 2020-11-15 09:36 | Outpatient (CLI) | payer MEDICARE, SELFPAY ==
[2020-11-15 10:24] LABS: BUN Creatinine Ratio 17.7 (6-22); Blood Urea Nitrogen 17 mg/dL (7-17); Calcium 9.4 mg/dL (8.4-10.2); Carbon Dioxide 23 mmol/L (22-32); Chloride 109 mmol/L (98-107); Estimated Glomerular Filt Rate 55.9 mL/min (>60); Glucose 110 mg/dL (80-110); HEMOLYSIS < 15 (0-50); Potassium 4.2 mmol/L (3.4-5.1); Sodium 140 mmol/L (137-145)
--- NOTE | 2020-11-15 10:59 | DI.CT.S_ITS ---
PROCEDURE: CT ABDOMEN PELVIS WO/W CON INDICATIONS: Recurring urinary tract infection, renal calculi, hematuria TECHNIQUE: Optional 5 mm thick noncontrast images acquired from the diaphragm to the symphysis pubis. After the administration of intravenous contrast, 5 mm thick images acquired from the diaphragm to the symphysis pubis after a 10-minute delay. 2 mm thick coronal and sagittal reformats were then performed of the kidneys and ureters. For radiation dose reduction, the following was used: automated exposure control, adjustment of mA and/or kV according to patient size. COMPARISON: [facility], CT, CT KIDNEY URETER BLADDER (KUB), 12/10/2019, 10:52. FINDINGS: Image quality: Excellent. Lung bases: Lung bases demonstrate minor centrilobular emphysema, but are otherwise clear. Heart size is normal. Surgical changes at the GE junction of Nadeem fundoplication. Urinary system: Moderately severe, chronic appearing right hydronephrosis and severe hydroureter to the level of the mid pelvis, distal ureter where there are two stones measuring 8 mm each. No significant perinephric inflammation and trace periureteric inflammation. No left-sided hydronephrosis or hydroureter. There are numerous punctate nonobstructing bilateral intrarenal calcifications. The left kidney demonstrates a 1.0 cm stone in the lower pole and an 8 mm stone in the midpole in addition. A 3.5 cm cortical cyst arises from the left upper pole. Postcontrast, the kidneys uptake and excrete IV contrast uniformly and symmetrically. The urinary bladder is decompressed and there are no calcifications or suspicious wall thickening. Other solid organs: The liver is mildly diffusely hypodense and there are occasional scattered punctate hypodensities too small to characterize. The gallbladder contains a probable noncalcified cholesterol stone at the fundus measuring less than a cm. No adrenal nodules. The spleen and pancreas are normal. Peritoneum and bowel: Bowel loops demonstrate normal wall thickness and caliber. No free fluid or air. Normal appendix. Sigmoid diverticulosis without acute diverticulitis. Nodes and vessels: No retroperitoneal or mesenteric adenopathy by size criteria. Aorta and inferior vena cava are normal in size. Abdominal wall: No ventral hernias. Pelvis: No pathologic free pelvic fluid. Uterus and ovaries appear normal. No inguinal hernias or adenopathy. Bones: No suspicious bony lesions. No vertebral body compression fractures. IMPRESSION: 1. Chronic appearing right distal ureteral obstructing calcifications. Given lack of significant perinephric or periureteric inflammation. 2. Bilateral intrarenal calculi, larger on the left than right. 3. Mild hepatic steatosis. 4. No significant urinary bladder wall thickening or stone. Dictated by: Valeri Gtz M.D. on 11/15/2020 at 11:40 Approved by: Valeri Gtz M.D. on 11/15/2020 at 11:50
== END ==
PROVIDERS: Family Provider Family Medicine; PCP Student in an Organized Health Care Education/Training Program; Referring Provider Urology; Visit Provider Urology
DX: N28.89 Other specified disorders of kidney and ureter (principal); N20.2 Calculus of kidney with calculus of ureter; N30.21 Other chronic cystitis with hematuria; K76.0 Fatty (change of) liver, not elsewhere classified; Z87.440 Personal history of urinary (tract) infections
CPT/HCPCS: 36415; 74178; 80048; Q9967

== ENCOUNTER → 2020-12-03 11:05 | Outpatient (CLI) | payer MEDICARE, SELFPAY ==
--- NOTE | 2020-12-03 11:36 | DI.RAD.S_ITS ---
PROCEDURE: XR KUB INDICATIONS: Right ureteral calculus TECHNIQUE: One view of the abdomen acquired. COMPARISON: [facility], CT, CT ABDOMEN PELVIS WO/W CON, 11/15/2020, 10:50. FINDINGS: Surgical changes and devices: None. Bowel: Bowel gas pattern is normal. Soft tissues: The plain film image shows 2 left-sided calcifications that appear to represent calcifications seen within the collecting system of the left kidney, measuring up to 1 cm. No ureteral calculus is. suspicious abdominal calcifications. Visualized solid organ contours appear normal in size. Bones: No suspicious bony lesions. IMPRESSION: Limited quality of valuation due to overlying bowel gas and stool content within the bowel loops. Two separate left-sided urinary tract calcifications appear to represent the same stones seen within the collecting system of the left kidney, 11/15/20. At time of prior scanning they were not obstructive. Dictated by: Reese Hollis M.D. on 12/03/2020 at 12:57 Approved by: Reese Hollis M.D. on 12/03/2020 at 12:59
== END ==
PROVIDERS: Family Provider Family Medicine; PCP Student in an Organized Health Care Education/Training Program; Referring Provider Urology; Visit Provider Urology
DX: R30.0 Dysuria (principal); N20.1 Calculus of ureter; N39.0 Urinary tract infection, site not specified; R10.30 Lower abdominal pain, unspecified; M54.5 Low back pain; G89.29 Other chronic pain
CPT/HCPCS: 51798; 74018; 81002; 87086; 99214

== ENCOUNTER → 2020-12-16 08:58 | Outpatient (CLI) | payer MEDICARE, SELFPAY | PROVIDERS: Family Provider Family Medicine; PCP Student in an Organized Health Care Education/Training Program; Visit Provider Urology | DX: R30.0 Dysuria (principal) | CPT/HCPCS: 87086 ==

== ENCOUNTER → 2020-12-16 10:50 | Outpatient (CLI) | payer MEDICARE, SELFPAY ==
--- NOTE | 2020-12-16 10:51 | DI.CT.S_ITS ---
PROCEDURE: CT ABDOMEN PELVIS WO CON INDICATIONS: Passage of right ureteral calculus TECHNIQUE: Axial sections were acquired from the lung bases to the pubic symphysis. Coronal and sagittal reformats were performed. For radiation dose reduction, the following was used: automated exposure control, adjustment of mA and/or kV according to patient size. COMPARISON: [facility], CT, CT KIDNEY URETER BLADDER (KUB), 12/10/2019, 10:52. [facility], CT, CT ABDOMEN PELVIS WO/W CON, 11/15/2020, 10:50. FINDINGS: Image quality: Excellent. Lung bases: Unremarkable. Heart: No significant findings. Clips at the diaphragmatic hiatus likely due to prior Nadeem fundoplication. URINARY: Right Kidney: Moderate to severe right hydroureteronephrosis is not significantly changed compared to 11/15/2020 but increased compared to 12/10/2019. Multiple additional punctate nonobstructing right kidney stones. Right Ureter: Calculi within the distal right ureter measuring 0.6 cm, (2/63); and 0.5 cm. Left Kidney: No hydronephrosis. Multiple nonobstructing kidney stones. Largest measuring 1 cm. Small peripelvic cysts. Simple appearing cyst at the superior pole. Left Ureter: No hydroureter. Bladder: Decompressed. No stones. ABDOMEN: Liver: Unremarkable. Gallbladder: No calcified gallstones. Biliary ducts: Unremarkable. Pancreas: Unremarkable. Spleen: Unremarkable. Adrenal Glands: Unremarkable. Stomach and Bowel: Stomach, small bowel loops, and colon are unremarkable. Diverticulosis. Normal appendix. Peritoneum: No abnormal intraperitoneal fluid. No free air. Ventral Wall: Tiny umbilical hernia. Abdominal Nodes: No enlarged retroperitoneal or mesenteric lymph nodes. Vessels: Aorta and inferior vena cava are normal in size. PELVIS: Pelvic Organs: Unremarkable. Pelvic Nodes: Unremarkable. Miscellaneous: No inguinal hernias are seen. Bones: Unremarkable. IMPRESSION: 1. Persistent obstructing calculi in the distal right ureter are unchanged. Chronic moderate to severe right hydroureteronephrosis is unchanged compared to October. However, this is progressed compared to last year. 2. Bilateral nonobstructing kidney stones. 3. Decompressed urinary bladder. Small focus of gas in the urinary bladder likely iatrogenic. (History states removal of catheter). 4. Diverticulosis. Dictated by: Tae Calhoun M.D. on 12/16/2020 at 12:48 Approved by: Tae Calhoun M.D. on 12/16/2020 at 13:01
== END ==
PROVIDERS: Family Provider Family Medicine; PCP Student in an Organized Health Care Education/Training Program; Referring Provider Urology; Visit Provider Urology
DX: N13.2 Hydronephrosis with renal and ureteral calculous obstruction (principal); K57.90 Diverticulosis of intestine, part unspecified, without perforation or abscess without bleeding; R30.0 Dysuria
CPT/HCPCS: 51701; 74176; 87086

== ENCOUNTER → 2021-01-25 10:17 | Outpatient (CLI) | payer MEDICARE, SELFPAY ==
[2021-01-25 12:22] LABS: COVID19 -Nasal RAPID Negative (Negative)
== END ==
PROVIDERS: Family Provider Family Medicine; PCP Student in an Organized Health Care Education/Training Program; Visit Provider Urology
DX: N39.0 Urinary tract infection, site not specified (principal); N20.1 Calculus of ureter; R10.30 Lower abdominal pain, unspecified; M54.5 Low back pain; G89.29 Other chronic pain; Z20.822 Contact with and (suspected) exposure to COVID-19
CPT/HCPCS: 81002; 87086; 87635; 99215

== ENCOUNTER 2021-01-27 08:53 | Day surgery (SDC) | payer MEDICARE, SELFPAY ==
[2021-01-24 07:50] VITALS: BMI 28.7
[2021-01-27] VITALS (10 sets, daily range): BP systolic 122–156; BP diastolic 65–74; PULSE 72–81; RESP 11–20; TEMP 36.5–37.6; O2SAT 94–99; BMI 28.7
[2021-01-27] MEDS: LACTATED RINGERS 1,000 ML 42 ML IV (09:19)
--- NOTE | 2021-01-27 09:43 | PM.PREOP ---
Pre-operative Note COVID-19 COVID-19 status: Negative Result date/Date tested (Pos, Neg/Pending): 01/25/21 Interval Note History & Physical reviewed/Exam performed by Physician: Yes Changes to H&P: No
--- NOTE | 2021-01-27 10:24 | SUR.OPER ---
Lithotomy on padded OR bed, head on pillow, arms secured on padded arm boards at <90 degrees abduction. Legs secured in padded yellow fins stirrups.
--- NOTE | 2021-01-27 11:54 | P.OP_ITS ---
Procedure & Clinicians Procedure: Right ureteroscopy with laser lithotripsy and basket extraction of stone fragments, right stent placement Same procedure as scheduled: Yes Indications: This is an 80-year-old female who presents for the above procedure to treat the 2 right ureteral stones which have failed to pass. Surgeon: Yasmani Padgett Click Yes if Unassisted: Yes Anesthesia Type: General Operative Notes Findings: External genitalia exhibits of vaginal mucosal atrophy. Urethral meatus is normal. Within the bladder there were inflammatory changes around the right ureteral orifice likely related to the patient's distal stones the bladder is otherwise unremarkable the left ureteral orifices in normal position with clear efflux. Stone 2 in number are noted in the distal ureter. There fragment with the laser and all large stone fragments were removed. A multi length stent was placed in the right collecting system without difficulty and the nylon hardness was removed. Closure Type: not applicable Specimen(s): other (Stone fragments were sent for compositional analysis) Applied: other (Right collecting system multi length stent 7 Cook Islander) Estimated Blood Loss (mL): 5 Blood products transfused: none Procedure in detail: Procedure in detail: After informed consent was obtained the patient was identified and brought to the operating room. Patient was placed in the supine position and anesthesia was induced and maintained. Patient was then transferred to the lithotomy position. Patient was prepped, draped in a sterile fashion for transurethral procedure. After prepping draping ensuring adequate love anesthesia a 21 [place] Islander cystoscope was passed through the urethra and the bladder or cystoscopy was performed with the 30 and 70 degree lens. A 0.035 guidewire was then passed with the assistance of a [place] catheter past the stone and position of the collecting system. The scope was backed out the wire was left in place and reserved as a safety wire. Scope was then reinserted and a 2nd wire passed up into the collecting system. The scope was then backed out and a semi-rigid ureteral scope was passed over the wire to the level of stones. Laser fiber was inserted and laser energy applied fragmenting the stone. A Nitinol basket was inserted and the stones were sequentially removed till all large stone fragments were absent. The ureteral scope was then removed cystoscope reinserted into the bladder and the fragments evacuated from the bladder. The scope was then taken out of the bladder the safety wire backloaded through the cystoscope which was reinserted. With the scope in place stent was passed over the wire under fluoroscopic vision position of the renal pelvis under fluoroscopic visualization in the bladder under direct vision. The nylon harness was removed and the stent was left in good position. The patient's bladder was drained the scope was removed the patient was awakened taken to the postanesthesia care unit having tolerated the procedure well. The patient will be discharged to home and follow up in my office in approximately 7-10 days. Complications: none Post-operative Condition: stable Disposition: PACU Plan for aftercare: Discharged home follow up in my office 7-10 days with KUB.
[2021-01-27] MEDS: ONDANSETRON 4 MG/2 ML INJ IV (12:02)
[2021-01-27] MEDS: PHENAZOPYRIDINE 100 MG TABLET 200 MG PO (12:12)
[2021-01-27] MEDS: OXYBUTYNIN 5 MG TABLET PO (12:12)
[2021-01-27] MEDS: OXYCODONE IR 5 MG TABLET PO (12:16)
[2021-01-27] MEDS: fentaNYL 100 MCG/2 ML INJ IV (12:25)
--- NOTE | 2021-01-27 12:27 | SUR.PHASEI ---
Pt c/o burning and having to pee, assumed care with pt on bedpan, no void, pt taken off bedpan, medicated with pyrdium and oxybutin. fentanyl and oxycontin for abdomenal pain 11/06.l
--- NOTE | 2021-01-27 12:37 | SUR.PHASEI ---
Updated pt's friend, friend to stay with pt when she goes back home and to pick medications up from the pharmacy as well.
--- NOTE | 2021-01-27 12:41 | SUR.PHASEI ---
Pt states pain in abdomen improving
[2021-01-27] MEDS: ACETAMINOPHEN 325 MG TABLET 650 MG PO (12:56)
--- NOTE | 2021-01-27 13:32 | SUR.PHASEII ---
Placed on 02 and continuous pulse ox. Dr. Padgett spoke at lenghth with pt and pt stated she is feeling much better and burning id gone.
--- NOTE | 2021-01-27 13:39 | SUR.PHASEII ---
Incentive spirometer directions discussed with pt. Up to 1200.
--- NOTE | 2021-01-27 15:16 | SUR.PHASEII ---
late entry: 02 weaned off, sats >94% on room air, pt was ready to go, assisted to br x2 orange in color, denied burning. 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
--- NOTE | 2021-01-27 15:19 | SUR.PHASEII ---
Urine strained while her, no stones noted.
[2021-02-02 15:26] LABS: Ca oxalate dihydrate 20 % (.); Ca oxalate monohydr 70 % (.); Hydroxyapatite 10 % (.)
== END 2021-01-27 15:00 | disposition home or self-care (01) ==
PROVIDERS: Family Provider Family Medicine; PCP Student in an Organized Health Care Education/Training Program; Referring Provider Urology; Visit Provider Urology
PROC: 0TF68ZZ Fragmentation in Right Ureter, Via Natural or Artificial Opening Endoscopic (ICD-10-PCS; CPT 52353; principal; 2021-01-27 10:45)
DX: N20.1 Calculus of ureter (principal)
CPT/HCPCS: 52356; 76000; 82365; J1100; J2405; J3010

== ENCOUNTER → 2021-02-03 09:38 | Outpatient (CLI) | payer MEDICARE, SELFPAY ==
--- NOTE | 2021-02-03 09:40 | DI.RAD.S_ITS ---
PROCEDURE: XR KUB INDICATIONS: Kidney TECHNIQUE: One view of the abdomen acquired. COMPARISON: [facility], CT, CT ABDOMEN PELVIS WO CON, 12/16/2020, 10:59. [facility], CR, XR KUB, 12/03/2020, 11:59. [facility], CR, KUB XRAY (1 VIEW ABDOMEN), 03/10/2015, 15:49. FINDINGS: Surgical changes and devices: Right double-J ureteral stent. Clips at the diaphragmatic hiatus. Bowel: Scattered small bowel and colonic gas. No dilated loops of bowel seen. Soft tissues: No stone is identified along the right ureteral stent. Several left kidney stones. No suspicious abdominal calcifications. Visualized solid organ contours appear normal in size. Lung bases are clear. Bones: No suspicious bony lesions. Scoliosis. IMPRESSION: Right ureteral stent. Several left kidney stones. Dictated by: Tae Calhoun M.D. on 02/03/2021 at 10:29 Approved by: Tae Calhoun M.D. on 02/03/2021 at 10:32
== END ==
PROVIDERS: Family Provider Family Medicine; PCP Student in an Organized Health Care Education/Training Program; Referring Provider Urology; Visit Provider Urology
DX: N20.0 Calculus of kidney (principal); N20.1 Calculus of ureter; R10.30 Lower abdominal pain, unspecified; N39.0 Urinary tract infection, site not specified; R82.81 Pyuria; Z68.27 Body mass index [BMI] 27.0-27.9, adult; R30.0 Dysuria
CPT/HCPCS: 74018; 81002; 87086; 99214

== ENCOUNTER → 2021-02-28 16:02 | Outpatient (CLI) | payer MEDICARE, SELFPAY | PROVIDERS: Family Provider Family Medicine; PCP Student in an Organized Health Care Education/Training Program; Referring Provider Urology; Visit Provider Urology | DX: N39.0 Urinary tract infection, site not specified (principal); R30.0 Dysuria | CPT/HCPCS: 81002; 87086 ==

== ENCOUNTER → 2021-03-10 10:00 | Outpatient (CLI) | payer MEDICARE, SELFPAY | PROVIDERS: Family Provider Family Medicine; PCP Student in an Organized Health Care Education/Training Program; Visit Provider Urology | DX: R30.0 Dysuria (principal); N20.1 Calculus of ureter; N39.0 Urinary tract infection, site not specified; Z96.0 Presence of urogenital implants | CPT/HCPCS: 52310; 87086 ==

== ENCOUNTER → 2021-04-11 09:50 | Outpatient (CLI) | payer MEDICARE, SELFPAY | PROVIDERS: Family Provider Family Medicine; PCP Student in an Organized Health Care Education/Training Program; Referring Provider Student in an Organized Health Care Education/Training Program; Visit Provider Student in an Organized Health Care Education/Training Program | DX: Z12.31 Encounter for screening mammogram for malignant neoplasm of breast (principal); Z53.8 Procedure and treatment not carried out for other reasons ==

== ENCOUNTER → 2021-05-26 11:47 | Outpatient (CLI) | payer MEDICARE, SELFPAY ==
--- NOTE | 2021-05-26 11:50 | DI.US.S_ITS ---
LIMITED ULTRASOUND OF RIGHT BREAST AND AXILLA: 05/26/2021 CLINICAL: Patient returns today to evaluate a focal asymmetry in the right breast. Comparison is made to exams dated: 05/26/2021 mammogram - [facility], 12/16/2018 mammogram, 12/16/2018 ultrasound biopsy, 12/05/2018 ultrasound, 12/05/2018 mammogram - outside location, and 02/20/2008 mammogram - out side. Color flow ultrasound of the right breast 11 o'clock, and axilla regions was performed. Tabares scale images of the real-time examination were reviewed. There is a 3.2 cm x 3.8 cm x 1.5 cm irregular mass with a microlobulated and angular margin in the right breast at 11 o'clock middle depth 9 cm from the nipple. This irregular mass is hypoechoic with posterior acoustic shadowing. This has increased in size. This correlates as palpated, with mammography findings, and the previous biopsy. Color flow imaging demonstrates that there is vascularity present. The new adjacent nodularity seen on the mammogram from the same day appears to be continuous with the larger biopsied portion of the mass, and is included in the measurements on this exam. No significant abnormalities were seen sonographically in the right axilla. IMPRESSION: KNOWN BIOPSY PROVEN MALIGNANCY The 3.2 cm x 3.8 cm x 1.5 cm irregular mass in the right breast is consistent with the known carcinoma and is a known biopsy positive for malignancy. Clinical correlation and follow up is recommended. Of note, patient is to return for left breast ultrasound to evaluate the reported palpable abnormality in the left breast without a mammographic correlate. This exam was interpreted at Station ID: [id number]. Electronically Signed By: Marcos Leiva M.D. ar/:05/26/2021 14:10:34 letter sent: Clinical Evaluation Ultrasound BI-RADS: 6 Known biopsy proven malignancy
--- NOTE | 2021-05-26 11:50 | DI.MG.S_ITS ---
BILATERAL DIGITAL DIAGNOSTIC MAMMOGRAM 3D/2D POST LUMPECTOMY: 05/26/2021 CLINICAL: Bilateral breast pain and lumps. Comparison is made to exams dated: 12/16/2018 mammogram, 12/05/2018 mammogram - outside location, 02/20/2008 mammogram - out side, 12/05/2018 ultrasound, and 12/16/2018 ultrasound biopsy - outside location. There are scattered fibroglandular elements in both breasts. There is an irregular mass with a spiculated margin in the right breast at 11 o'clock middle depth. This is increased in size and correlates as palpated. There is a biopsy clip associated with the mass. A few new nodular opacities are seen adjacent to the biopsied mass extending laterally and superficially, which is suspicious for satellite nodularity. No other significant masses, calcifications, or other findings are seen in either breast. IMPRESSION: INCOMPLETE: NEEDS ADDITIONAL IMAGING EVALUATION The irregular mass in the right breast is consistent with the known carcinoma and is indeterminate. An ultrasound is recommended. There is no abnormality seen in the left breast to correspond with the palpable abnormality, however, ultrasound is recommended. Patient was scheduled only for right breast ultrasound, which will be performed immediately following this exam. Patient will return on another day for left breast ultrasound for further evaluation of the palpable abnormality in the left breast. This exam was interpreted at Station ID: [id number]. NOTE: For mammograms, a report in lay terms will be sent to the patient. Approximately 15% of breast malignancies will not be visualized mammographically. In the management of a palpable breast mass, a negative mammogram must not discourage biopsy of a clinically suspicious lesion. Electronically Signed By: Marcos navarro/:05/26/2021 13:56:06 Entry: - 05/27/2021 09:10:08 ACR BI-RADS Category 0: Incomplete [id number]
== END ==
PROVIDERS: Family Provider Family Medicine; PCP Student in an Organized Health Care Education/Training Program; Referring Provider Student in an Organized Health Care Education/Training Program; Visit Provider Student in an Organized Health Care Education/Training Program
DX: C50.411 Malignant neoplasm of upper-outer quadrant of right female breast (principal); N63.20 Unspecified lump in the left breast, unspecified quadrant; N64.4 Mastodynia
CPT/HCPCS: 76642; 77066; G0279

== ENCOUNTER → 2021-06-09 11:09 | Outpatient (CLI) | payer MEDICARE, SELFPAY ==
--- NOTE | 2021-06-09 11:22 | DI.US.S_ITS ---
Patient Name: PAIGE SHINE date: 1940 Sex: F Attending Physician: Bushra Indications: Date: 06/09/2021 11:31 At the request of: CHENG DICKERSON Procedure: US breast LT limited LIMITED ULTRASOUND OF LEFT BREAST: 06/09/2021 CLINICAL: Palpable left breast lump. Comparison is made to exams dated: 05/26/2021 mammogram - [facility], 12/16/2018 mammogram, 12/05/2018 mammogram - outside location, and 02/20/2008 mammogram - out side. Real-time ultrasound of the left breast 10 o'clock region was performed on the area of interest. No discrete cystic or solid mass lesion identified in the area of palpable abnormality. IMPRESSION: NEGATIVE There is no sonographic evidence of malignancy in the left breast. There is no abnormality seen in the left breast to correspond with the palpable abnormality at 10 o'clock, however, clinical followup is recommended. Clinical followup is recommended for patient's known biopsy proven malignancy in the right breast. This exam was interpreted at Station ID: [id number]. Electronically Signed By: Orlando Swain M.D. ddp/:06/09/2021 12:03:02 letter sent: Clinical Evaluation Ultrasound BI-RADS: 1 Negative
== END ==
PROVIDERS: Family Provider Family Medicine; PCP Student in an Organized Health Care Education/Training Program; Referring Provider Student in an Organized Health Care Education/Training Program; Visit Provider Student in an Organized Health Care Education/Training Program
DX: R92.8 Other abnormal and inconclusive findings on diagnostic imaging of breast (principal); N63.22 Unspecified lump in the left breast, upper inner quadrant; C50.911 Malignant neoplasm of unspecified site of right female breast
CPT/HCPCS: 76642

== ENCOUNTER 2021-08-26 19:03 | Emergency (ER) | payer MEDICARE, SELFPAY ==
--- NOTE | 2021-08-26 19:12 | DI.RAD.S_ITS ---
PROCEDURE: XR ELBOW LT MIN 3V INDICATIONS: fall with pain TECHNIQUE: 3 views of the elbow were acquired. COMPARISON: None. FINDINGS: Bones: No fractures or dislocations. No suspicious bony lesions. Soft tissues: No elbow joint effusion. No suspicious soft tissue calcifications. IMPRESSION: No visualized acute fracture or dislocation. However, if clinical concern and/or pain persist, short interval imaging followup in 7-10 days is recommended, as occult injury cannot be definitively excluded. Dictated by: Luciana Camilo M.D. on 08/26/2021 at 20:36 Approved by: Luciana Camilo M.D. on 08/26/2021 at 20:37
--- NOTE | 2021-08-26 19:12 | DI.RAD.S_ITS ---
PROCEDURE: XR SHOULDER LT MIN 2V INDICATIONS: fall with pain TECHNIQUE: 2 views of the shoulder were acquired. COMPARISON: None. FINDINGS: Bones: There is a minimally displaced humeral neck fracture. No dislocation at the glenohumeral joint space. Soft tissues: No suspicious soft tissue calcifications. IMPRESSION: Minimally displaced humeral neck fracture. Dictated by: Luciana Camilo M.D. on 08/26/2021 at 20:14 Approved by: Luciana Camilo M.D. on 08/26/2021 at 20:15
--- NOTE | 2021-08-26 19:13 | DI.RAD.S_ITS ---
PROCEDURE: XR CHEST 1V INDICATIONS: fall, trauma TECHNIQUE: One view of the chest was acquired. COMPARISON: None. FINDINGS: Surgical changes and devices: None. Lungs and pleura: Lungs are clear. No pleural effusions or pneumothorax. Mediastinum: Mediastinal contours appear normal. Heart size is enlarged. Bones and chest wall: No suspicious bony lesions. Overlying soft tissues appear unremarkable. IMPRESSION: No acute pulmonary process. Dictated by: Luciana Camilo M.D. on 08/26/2021 at 20:12 Approved by: Luciana Camilo M.D. on 08/26/2021 at 20:12
--- NOTE | 2021-08-26 19:13 | DI.CT.S_ITS ---
PROCEDURE: CT CERVICAL SPINE WO CON INDICATIONS: fall, +etoh, distracting injury TECHNIQUE: Noncontrast 3 mm thick sections acquired from the skull base to the T4 level. Sagittal and coronal reformats were then constructed. For radiation dose reduction, the following was used: automated exposure control, adjustment of mA and/or kV according to patient size. COMPARISON: None. FINDINGS: Image quality: Excellent. Bones: No fractures or dislocations. Visualized superior ribs are intact. Multilevel degenerative changes are present. Soft tissues: Prevertebral soft tissues are normal in thickness. No paravertebral hematomas. No apical pneumothoraces. IMPRESSION: Multilevel degenerative changes without visualized fracture Dictated by: Luciana Camilo M.D. on 08/26/2021 at 19:48 Approved by: Luciana Camilo M.D. on 08/26/2021 at 19:56
--- NOTE | 2021-08-26 19:13 | DI.CT.S_ITS ---
PROCEDURE: CT HEAD/BRAIN WO CON INDICATIONS: fall, etoh, possible head injury TECHNIQUE: Noncontrast 4.5 mm thick angled axial sections acquired from the foramen magnum to the vertex, with coronal and sagittal reformats. For radiation dose reduction, the following was used: automated exposure control, adjustment of mA and/or kV according to patient size. COMPARISON: MR, MR HEAD/BRAIN WO/W CON, 08/19/2018, 11:11. FINDINGS: Image quality: Excellent. CSF spaces: Basal cisterns are patent. No extra-axial fluid collections. The ventricles are symmetric in size and shape. Brain: No intracranial bleeds or masses. There is cerebral volume loss for age, with resultant ventricular and sulcal prominence. There are periventricular and deep white matter chronic small vessel ischemic changes. There is intracranial internal carotid artery atherosclerosis. Skull and face: Calvarium and visualized facial bones appear intact, without suspicious lesions. Sinuses: Visualized sinuses demonstrate bilateral maxillary sinus mucous retention cysts versus polyps. IMPRESSION: 1. No acute intracranial process. 2. Moderate to severe atrophy and chronic microvascular ischemic changes. Dictated by: Luciana Camilo M.D. on 08/26/2021 at 19:57 Approved by: Luciana Camilo M.D. on 08/26/2021 at 19:58
--- NOTE | 2021-08-26 19:13 | DI.RAD.S_ITS ---
PROCEDURE: XR PELVIS 1-2V INDICATIONS: fall trauma TECHNIQUE: 1 view(s) of the pelvis acquired. COMPARISON: None. FINDINGS: Bones: No fractures or dislocations. No suspicious bony lesions. Soft tissues: Visualized bowel gas pattern is normal. No suspicious soft tissue calcifications. IMPRESSION: No visualized acute fracture or dislocation. However, if clinical concern and/or pain persist, short interval imaging followup in 7-10 days is recommended, as occult injury cannot be definitively excluded. Dictated by: Luciana Camilo M.D. on 08/26/2021 at 20:13 Approved by: Luciana Camilo M.D. on 08/26/2021 at 20:14
[2021-08-26 19:15] VITALS: BP 131/61; PULSE 60; RESP 16; TEMP 36.3; O2SAT 96; BMI 28.7
--- NOTE | 2021-08-26 19:22 | ED_ITS ---
HPI - Fall General Chief Complaint: Fall Stated Complaint: GLF L arm Time Seen by Provider: 08/26/21 19:12 Mode of arrival: EMS History of Present Illness HPI Narrative: 80-year-old female former smoker with history of COPD and breast cancer presents by EMS for evaluation of a ground level fall just prior to arrival. She states she was in her normal state of health and denies any prodromal symptoms such as dizziness, weakness or lightheadedness. She states that she stubbed her toe and fell obviously injuring her left shoulder and upper arm but likely striking her head as well. She does not take any blood thinners but has been consuming alcohol at happy hour this afternoon. She denies any loss of consciousness and has had no nausea or vomiting. She has mild neck pain that seems to be worse when she moves her head. She denies any numbness, tingling or weakness of her extremities. She has no chest pain or shortness of breath. She has pain in her left shoulder and elbow, both of which her worse when she moves and. She denies numbness, tingling or weakness. She is activated as a modified trauma given her age and suspected injury. Related Data Previous Rx's Medication Instructions Recorded paroxetine HCl 30 mg tablet 30 mg PO DAILY #90 tab 01/10/21 propranolol 60 mg capsule,24 60 mg PO DAILY #90 cap 01/25/21 hr,extended release hydrocodone 5 mg-acetaminophen 325 1 tab PO Q4-6H PRN #10 tab 08/26/21 mg tablet ondansetron 4 mg disintegrating 4 mg PO TID-QID PRN #10 tab 08/26/21 tablet Allergies Allergy/AdvReac Type Severity Reaction Status Date / Time ibuprofen [From MOTRIN] Allergy Intermediate HIVES Verified 08/01/21 15:37 Penicillins [PENICILLINS] Allergy Intermediate HIVES Verified 08/01/21 15:37 Review of Systems Review of Systems Narrative: GENERAL: Denies chills, fatigue, malaise, fever, sweats. HEENT: Denies sinus pain, ear pain, sore throat, difficulty swallowing, dizziness. RESPIRATORY: Denies dyspnea, cough, wheezing, hemoptysis, sputum. CARDIOVASCULAR: Denies chest pain, palpitations, orthopnea, edema, GASTROINTESTINAL: Denies nausea, vomiting, abdominal pain, diarrhea, constipation, melena. : Denies dysuria, frequency, incontinence, hematuria, urinary retention. MUSCULOSKELETAL: See HPI SKIN: Denies rash, skin lesions, or other NEUROLOGIC: Denies weakness, headache, numbness, change in speech, confusion, seizures, incoordination. PSYCHIATRIC: No concerning psychosocial issues. 12 point review of systems is negative except for those stated above Patient History Medical History After cataract of right eye not obscuring vision Exudative age-related macular degeneration, left eye, stage unspecified GI bleed Low back pain Macular degeneration Pulmonary embolism Recurrent urinary tract infection Retained ureteral stent Right ureteral calculus Temporal arteritis Tremors of nervous system Surgical History H/O hernia repair Total knee replacement status Social History marital status: number of children: 0 household members: caregiver lives independently: Yes caregiver/support person: Yes pets and animals: No occupational status: previously employed Smoking Status: Former smoker alcohol intake: former caffeine: No Type(s) of exercise: none Smoking Status: Former smoker alcohol intake frequency: 0-2 drinks per day Substance Use Type: does not use Exam Narrative Exam Narrative: GENERAL: [80] year old patient appears stated age. Well-developed patient, in mild distress. GCS 15 HEAD: Atraumatic. Normocephalic. EYES: Pupils equal round and reactive. Extraocular motions intact. No scleral icterus. No injection or drainage. ENT: Nose without bleeding, purulent drainage. Throat without erythema, tonsillar hypertrophy or exudate. Airway patent. NECK: Trachea midline. Non tender. C-collar in place, cannot clear clinically CARDIOVASCULAR: Regular rate and rhythm without murmurs, gallops, or rubs. RESPIRATORY: Clear to auscultation. Breath sounds equal bilaterally. No wheezes, rales, or rhonchi. GASTROINTESTINAL: Abdomen soft, non-tender, nondistended. EXTREMITIES: Left shoulder and elbow pain, no obvious deformity, abrasions or lacerations. Significant tenderness to palpation and attempts at range of motion. These are closed and neurovascularly intact. No pain on palpation of hips, knees, ankles BACK: Nontender without deformity or crepitance. No flank tenderness. NEURO: AOx3. SKIN: No rash or erythema of visible areas Initial Vital Signs Initial Vital Signs: Vital Signs Temperature 97.4 F L 08/26/21 19:15 Pulse Rate 60 08/26/21 19:15 Respiratory Rate 16 08/26/21 19:15 Blood Pressure 131/61 08/26/21 19:15 Pulse Oximetry 96 08/26/21 19:15 Procedures Orthopedic Splinting/Casting Injury #1: Side: left Upper Extremity Injury Location: shoulder Upper Extremity Immobilizer: sling/shoulder immobilizer Post splinting neuro exam: intact Post splinting vascular exam: intact Placed by: Nursing Course Orders Ordered: ED Orders 08/26/21 19:12 XR elbow LT min 3V Stat XR shoulder LT min 2V Stat 08/26/21 19:13 CT cervical spine wo con Stat CT head/brain wo con Stat XR chest 1V Stat XR pelvis 1-2V Stat 08/26/21 20:20 Complete Blood Count AUTO DIFF Stat Comprehensive Metabolic Panel Stat NT-proBNP (BNP-Adult 18+) Stat Prothrombin Time INR Stat Troponin & CK Cardiac Panel Stat Discontinued Medications Hydrocodone Bitart/Acetaminophen (Hydrocodone/Acet 5/325 Prepack) 1 bottle MISC SEEINSTR ONE Stop: 08/26/21 19:55 Last Admin: 08/26/21 20:02 Dose: 1 bottle Documented by: KELBY Sodium Chloride (Normal Saline 0.9%) 500 mls @ 1,000 mls/hr IV BOLUS ONE Stop: 08/26/21 19:41 Last Infusion: 08/26/21 21:17 Dose: 0 mls/hr Documented by: Admin: 08/26/21 20:06 Dose: 1,000 mls/hr Documented by: KELBY Ondansetron HCl (Ondansetron 4 Mg/2 Ml Inj) 4 mg IV NOW ONE Stop: 08/26/21 19:13 Last Admin: 08/26/21 20:04 Dose: 4 mg Documented by: KELBY Ondansetron HCl (Ondansetron 4 Mg Odt Prepack) 1 bottle MISC SEEINSTR ONE Stop: 08/26/21 19:55 Last Admin: 08/26/21 20:04 Dose: 1 bottle Documented by: KELBY Vital Signs Vital signs: Vital Signs - 8 hr 08/26/21 19:15 Temperature 97.4 F L Pulse Rate 60 Respiratory Rate 16 Blood Pressure 131/61 Pulse Oximetry 96 fall Lab Data Result diagrams: 08/26/21 20:20 08/26/21 20:20 Labs: Lab Results 08/26/21 08/26/21 08/26/21 Range/Units 20:20 20:20 20:20 WBC 6.2 (4.5-11.0) X10^3/uL RBC 3.86 L (4.0-5.2) X10^6/uL Hgb 13.4 (12.0-16.0) g/dL Hct 40.2 (36-46) % MCV 104.2 H (80-100) fL MCH 34.7 H (26-34) PG MCHC 33.3 (30-36) % RDW 14.8 (11.6-14.8) % Plt Count 190 (150-400) X10^3/uL Neut % (Auto) 65.8 (50-75) % Lymph % (Auto) 23.6 L (25-40) % [place] % (Auto) 6.7 (3-14) % Eos % (Auto) 3.0 (2-4) % Baso % (Auto) 0.9 (0-2) % Neut # (Auto) 4100 (9796-2372) /uL Lymph # (Auto) 1500 (8243-5625) /uL [place] # (Auto) 400 (0-900) /uL Eos # (Auto) 200 (0-450) /uL Baso # (Auto) 100 (0-100) /uL PT 10.8 (10.1-12.7) SECONDS INR 1.0 (0.9-1.3) Sodium 138 (137-145) mmol/L Potassium 3.7 (3.4-5.1) mmol/L Chloride 108 H (98-107) mmol/L Carbon Dioxide 22 (22-32) mmol/L BUN 16 (7-17) mg/dL Creatinine 0.91 (0.52-1.04) mg/dL Estimated GFR > 60 (>60) mL/min BUN/Creatinine Ratio 17.6 (6-22) Glucose 90 (80-110) mg/dL Calcium 8.2 L (8.4-10.2) mg/dL Total Bilirubin 0.5 (0.2-1.3) mg/dL AST 24 (14-36) IU/L ALT 14 (<35) IU/L Alkaline Phosphatase 94 (38-126) U/L Total Creatine Kinase 34 (30-135) U/L CK-MB (CK-2) TNP CK-MB (CK-2) Rel Index TNP Troponin I < 0.012 (0.01-0.034) ng/mL NT-Pro-B Natriuret Pep 643 H (<450) pg/mL Total Protein 6.5 (6.3-8.2) g/dL Albumin 3.7 (3.5-5.0) g/dL Globulin 2.8 (1.7-4.1) g/dL Albumin/Globulin Ratio 1.3 (1.0-2.8) Imaging Data CT scan - head: Radiologist's Impression: [address] [address] [address] Scan Report Signed Patient: Kathrin Staton MR#: [id number] : 1940 Acct:[id number] Age/Sex: 80 / F Date of Service: 08/26/21 Loc: ED Accession Number: [id number] ?? Procedure: CT head/brain wo con Ordering Provider: Alin Chaudhry D.O. PROCEDURE:? CT HEAD/BRAIN WO CON ? INDICATIONS:? fall, etoh, possible head injury ? TECHNIQUE:? Noncontrast 4.5 mm thick angled axial sections acquired from the foramen magnum to the vertex, with coronal and sagittal reformats.? For radiation dose reduction, the following was used:? automated exposure control, adjustment of mA and/or kV according to patient size.? ? COMPARISON:? MR, MR HEAD/BRAIN WO/W CON, 08/19/2018, 11:11. ? FINDINGS:? Image quality:? Excellent.? ? CSF spaces:? Basal cisterns are patent.? No extra-axial fluid collections.? The ventricles are symmetric in size and shape.? ? Brain:? No intracranial bleeds or masses.? There is cerebral volume loss for age, with resultant ventricular and sulcal prominence.? There are periventricular and deep white matter chronic small vessel ischemic changes.? There is intracranial internal carotid artery atherosclerosis.? ? Skull and face:? Calvarium and visualized facial bones appear intact, without suspicious lesions.? ? Sinuses:? Visualized sinuses demonstrate bilateral maxillary sinus mucous retention cysts versus polyps. ? IMPRESSION:? 1. No acute intracranial process. ? 2. Moderate to severe atrophy and chronic microvascular ischemic changes. ? ? ? Dictated by: Luciana Camilo M.D. on 08/26/2021 at 19:57 ? ? Approved by: Luciana Camilo M.D. on 08/26/2021 at 19:58 ? CT - cervical spine: Radiologist's Impression: [place] [address] CT Scan Report Signed Patient: Kathrin Staton MR#: [id number] : 1940 Acct:[id number] Age/Sex: 80 / F Date of Service: 08/26/21 Loc: ED Accession Number: [id number] ?? Procedure: CT cervical spine wo con Ordering Provider: Alin Chaudhry D.O. PROCEDURE:? CT CERVICAL SPINE WO CON ? INDICATIONS:? fall, +etoh, distracting injury ? TECHNIQUE:? Noncontrast 3 mm thick sections acquired from the skull base to the T4 level.? Sagittal and coronal reformats were then constructed.? For radiation dose reduction, the following was used:? automated exposure control, adjustment of mA and/or kV according to patient size.? ? COMPARISON:? None. ? FINDINGS:? Image quality:? Excellent.? ? Bones:? No fractures or dislocations.? Visualized superior ribs are intact.? Multilevel degenerative changes are present. ? Soft tissues:? Prevertebral soft tissues are normal in thickness.? No paravertebral hematomas.? No apical pneumothoraces.? ? ? IMPRESSION:? Multilevel degenerative changes without visualized fracture ? Dictated by: Luciana Camilo M.D. on 08/26/2021 at 19:48 ? ? Approved by: Luciana Camilo M.D. on 08/26/2021 at 19:56 ? Extremity x-ray #1: Radiologist's Impression: [address] [address] XRay Report Signed Patient: Kathrin Staton MR#: [id number] : 1940 Acct:[id number] Age/Sex: 80 / F Date of Service: 08/26/21 Loc: ED Accession Number: [id number] ?? Procedure: XR shoulder LT min 2V Ordering Provider: Alin Chaudhry D.O. PROCEDURE:? XR SHOULDER LT MIN 2V ? INDICATIONS:? fall with pain ? TECHNIQUE:? 2 views of the shoulder were acquired.? ? COMPARISON:? None. ? FINDINGS:? ? Bones:? There is a minimally displaced humeral neck fracture.? No dislocation at the glenohumeral joint space. ? Soft tissues:? No suspicious soft tissue calcifications.? ? IMPRESSION:? Minimally displaced humeral neck fracture. ? ? Dictated by: Luciana Camilo M.D. on 08/26/2021 at 20:14 ? ? Approved by: Luciana Camilo M.D. on 08/26/2021 at 20:15 ? Abdominal x-ray: Radiologist's Impression: [address] [address] XRay Report Signed Patient: Kathrin Staton MR#: [id number] : 1940 Acct:[id number] Age/Sex: 80 / F Date of Service: 08/26/21 Loc: ED Accession Number: [id number] ?? Procedure: XR pelvis 1-2V Ordering Provider: Alin Chaudhry D.O. PROCEDURE:? XR PELVIS 1-2V ? INDICATIONS:? fall trauma ? TECHNIQUE:? 1 view(s) of the pelvis acquired.? ? COMPARISON:? None. ? FINDINGS:? ? Bones:? No fractures or dislocations.? No suspicious bony lesions.? ? Soft tissues:? Visualized bowel gas pattern is normal.? No suspicious soft tissue calcifications.? ? IMPRESSION:? No visualized acute fracture or dislocation. However, if clinical concern and/or pain persist, short interval imaging followup in 7-10 days is recomm ended, as occult injury cannot be definitively excluded. ? ? Dictated by: Luciana Camilo M.D. on 08/26/2021 at 20:13 ? ? Approved by: Luciana Camilo M.D. on 08/26/2021 at 20:14? Chest x-ray: Radiologist's Impression: [address] [address] XRay Report Signed Patient: Kathrin Staton MR#: [id number] : 1940 Acct:[id number] Age/Sex: 80 / F Date of Service: 08/26/21 Loc: ED Accession Number: [id number] ?? Procedure: XR chest 1V Ordering Provider: Alin Chaudhry D.O. PROCEDURE:? XR CHEST 1V ? INDICATIONS:? fall, trauma ? TECHNIQUE:? One view of the chest was acquired.? ? COMPARISON:? None. ? FINDINGS:? ? Surgical changes and devices:? None.? ? Lungs and pleura:? Lungs are clear.? No pleural effusions or pneumothorax.? ? Mediastinum:? Mediastinal contours appear normal.? Heart size is enlarged. ? Bones and chest wall:? No suspicious bony lesions.? Overlying soft tissues appear unremarkable.? ? IMPRESSION:? No acute pulmonary process. ? ? Dictated by: Luciana Camilo M.D. on 08/26/2021 at 20:12 ? ? Approved by: Luciana Camilo M.D. on 08/26/2021 at 20:12 ? Discharge Plan Departure Patient Disposition: Home Clinical Impression: Fracture of proximal humerus Instructions: How to Prevent Falls Activity Restrictions/Additional Instructions: *You have been diagnosed with [left proximal humerus fracture] *What to do: *Please continue to take your regular medications as directed. [x ] New medication prescriptions sent to your pharmacy: [[facility] ] [ ] New medication written as a paper prescription [x] occasional Motrin for pain *Please follow up with Dr. Eliazar Nuñez] of [facility] in 2-3 days, call for an appointment. Let them know you were seen in the Emergency Department and that we ask that you be seen in follow up. We will electronically transmit a record of today's note if your PCP is in our system *Return to Emergency Department if you should have any new, worsening or concerning symptoms, such as [worsening pain, significant swelling, cold extremities, numbness, tingling, weakness or other bothersome symptoms Splint/Sling Care: Keep sling clean and dry. Elevated affected body part to decrease swelling. OK to use ice pack on the affected body part. Use for 15-20 minutes each time, for 5-6x per day. Return to the Emergency Department for any new or worsening symptoms. You have been prescribed a short course of narcotic medications. These are potentially dangerous and addictive medications that should be used carefully. While on these medications you cannot drive or operate heavy machinery. Additionally, you cannot sign legal documents or perform any duties such as this. Many people get constipated on narcotic medications so it would be advisable to discuss stool softeners with the pharmacist when you berry picker your prescription. Please understand that we cannot provide further refills of narcotics or control led substances through the ED and your pain management will need to be through your Primary Care Provider Prescriptions: New hydrocodone-acetaminophen 5-325 mg tablet 1 tab PO Q4-6H PRN (Reason: pain) Qty: 10 0RF ondansetron 4 mg tablet,disintegrating 4 mg PO TID-QID PRN (Reason: nausea and vomiting) Qty: 10 0RF No Action paroxetine HCl 30 mg tablet 30 mg PO DAILY Qty: 90 3RF propranolol 60 mg capsule,extended release 24 hr 60 mg PO DAILY Qty: 90 3RF Referrals: Obey Tomlinson MD [Primary Care Provider] - Leena Nuñez MD [Physician] -
[2021-08-26] MEDS: HYDROCODONE/ACET 5/325 PREPACK 1 BOTTLE MISC (20:02)
[2021-08-26] MEDS: ONDANSETRON 4 MG/2 ML INJ IV (20:04)
[2021-08-26] MEDS: ONDANSETRON 4 MG ODT PREPACK 1 BOTTLE MISC (20:04)
[2021-08-26] MEDS: SODIUM CHLORIDE 0.9% 500 ML 1000 ML IV (20:06)
[2021-08-26 20:29] LABS: Add Manual Diff / Slide Review NO; Basophils Absolute Auto 100 /uL (0-100); Basophils Percent Auto 0.9 % (0-2); Eosinophils Absolute Auto 200 /uL (0-450); Hematocrit 40.2 % (36-46); Hemoglobin 13.4 g/dL (12.0-16.0); Lymphocytes Absolute Auto 1500 /uL (1100-4500); Lymphocytes Percent Auto 23.6 % (25-40); Mean Corpuscular HGB Conc 33.3 % (30-36); Mean Corpuscular Hemoglobin 34.7 PG (26-34); Mean Corpuscular Volume 104.2 fL (80-100); Monocytes Absolute Auto 400 /uL (0-900); Monocytes Percent Auto 6.7 % (3-14); Neutrophils Absolute Auto 4100 /uL (1500-7000); Neutrophils Percent Auto 65.8 % (50-75); Platelet Count 190 X10^3/uL (150-400); Red Blood Cell Count 3.86 X10^6/uL (4.0-5.2); Red Cell Distribution Width 14.8 % (11.6-14.8); White Blood Cell Count 6.2 X10^3/uL (4.5-11.0)
[2021-08-26 20:38] LABS: Prothrombin Time 10.8 SECONDS (10.1-12.7)
[2021-08-26 20:43] LABS: Alanine Aminotransferase 14 IU/L (<35); Albumin 3.7 g/dL (3.5-5.0); Albumin Globulin Ratio 1.3 (1.0-2.8); Alkaline Phosphatase 94 U/L (38-126); Aspartate Aminotransferase 24 IU/L (14-36); BUN Creatinine Ratio 17.6 (6-22); Bilirubin Total 0.5 mg/dL (0.2-1.3); Blood Urea Nitrogen 16 mg/dL (7-17); Calcium 8.2 mg/dL (8.4-10.2); Carbon Dioxide 22 mmol/L (22-32); Chloride 108 mmol/L (98-107); Creatine Kinase 34 U/L (30-135); Estimated Glomerular Filt Rate > 60 mL/min (>60); Globulin 2.8 g/dL (1.7-4.1); Glucose 90 mg/dL (80-110); HEMOLYSIS 25 (0-50); Potassium 3.7 mmol/L (3.4-5.1); Sodium 138 mmol/L (137-145); Total Protein 6.5 g/dL (6.3-8.2)
[2021-08-26 20:54] LABS: NT-proBNP (BNP-Adult 18+) 643 pg/mL (<450); Troponin I < 0.012 ng/mL (0.01-0.034)
== END 2021-08-26 21:44 | disposition home or self-care (01) ==
PROVIDERS: Emergency Provider Emergency Medicine; Family Provider Family Medicine; PCP Student in an Organized Health Care Education/Training Program
DX: S42.292A Other displaced fracture of upper end of left humerus, initial encounter for closed fracture (principal); M54.2 Cervicalgia; W01.0XXA Fall on same level from slipping, tripping and stumbling without subsequent striking against object, initial encounter
CPT/HCPCS: 70450; 71045; 72125; 72170; 73030; 73080; 80053; 82550; 83880; 84484; 85025; 85610; 96374; 99284; J2405